=== PATIENT | female | born 1965 | race Hispanic/Latino ===

== ENCOUNTER 2019-08-12 14:46 | Emergency (ER) | payer SELFPAY ==
[2019-08-12 15:33] LABS: BASOPHILS % (AUTO) 0.6 % (0.0-5.0); HEMATOCRIT 38.9 % (36-48); MEAN CORPUSCULAR HEMOGLOBIN 28.9 pg (27.0-33.0); MEAN CORPUSCULAR HGB CONC 32.4 g/dL (32.0-36.0); MEAN CORPUSCULAR VOLUME 89.2 fL (79-99); MONOCYTES % (AUTO) 4.5 % (3.0-13.0); NEUTROPHILS % (AUTO) 52.7 % (40.0-77.0); PLATELET COUNT (AUTO) 273 K/uL (130-400); RED BLOOD CELL COUNT(AUTO) 4.36 MIL/uL (4.00-5.50); RED CELL DISTRIBUTION WIDTH 13.4 % (11.0-15.5); WHITE BLOOD COUNT (AUTO) 6.4 K/uL (4.8-10.8)
[2019-08-12] MEDS ORDERED: IPRATROPIUM/ALBUTEROL SULFATE 3 ML SOLUTION IH ONE (15:38)
[2019-08-12 15:52] LABS: CREATININE 0.8 mg/dL (0.5-1.5); POTASSIUM 4.4 mmol/L (3.5-5.1)
[2019-08-12 15:57] LABS: ALBUMIN 3.5 g/dL (3.5-5.0); BILIRUBIN,TOTAL 0.6 mg/dL (0.2-1.0); TOTAL PROTEIN, SERUM 7.8 g/dL (6.0-8.3)
[2019-08-12 15:59] LABS: RAPID GROUP A STREP NEGATIVE (NEGATIVE)
[2019-08-12] MEDS ORDERED: IOHEXOL-350 75 ML VIAL IV ONE (16:00)
[2019-08-12] MEDS ORDERED: DEXAMETHASONE SOD PHOSPHATE 10MG/ML 1ML VIAL ONE (18:57)
[2019-08-12] MEDS ORDERED: LIDOCAINE HCL-MPF 1% 2ML VIAL ONE (18:58)
[2019-08-12] MEDS ORDERED: CEFTRIAXONE SODIUM 1 GM ONE (18:58)
== END 2019-08-12 19:25 | disposition home or self-care (01) ==
LOC: EDH 14:46
DX: J21.9 Acute bronchiolitis, unspecified (principal); J98.4 Other disorders of lung; E11.9 Type 2 diabetes mellitus without complications
CPT/HCPCS: 36415; 71045; 71275; 80053; 82550; 83880; 84484; 85025; 87804 ×2; 87880; 93005; 94640; 96374; 96375; 99285; J0696; J1100; J3490; Q9967

== ENCOUNTER → 2024-06-28 | Emergency (ER) | payer OTHER ==
[~2024-06-28] VITALS: Ht 149.9 cm; Wt 73.5 kg
[2024-06-28 22:56] VITALS: BP 155/81; PULSE 81; RESP 20; TEMP 98
--- NOTE | 2024-06-28 23:40 | NUR ---
CALLED FOR PT AT 2330; NO RESPONSE; PT NOT FOUND IN LOBBY.
--- NOTE | 2024-06-28 23:53 | NUR ---
CALLED FOR PT IN LOBBY AT [phone]; PT NOT FOUND.
== END | disposition left against medical advice (07) ==
LOC: EDH 22:53
DX: R51.9 Headache, unspecified (principal); M54.9 Dorsalgia, unspecified; Z53.21 Procedure and treatment not carried out due to patient leaving prior to being seen by health care provider